=== PATIENT | male | born 1935 | race Caucasian/White ===

== ENCOUNTER 2016-07-19 10:27 | Observation (INO) ==
[2016-07-19 11:02] LABS: Basophils % 0.5 %; Eosinophils # 0.2 K/mcL (0.0-0.6); Eosinophils % 4.8 %; Immature Granulocytes % 0.2 % (0-4); Lymphocytes # 1.5 K/mcL (0.6-4.6); Lymphocytes % 35.7 %; Mean Corpuscular HGB Conc 34.1 g/dL (31.6-35.5); Mean Corpuscular Hemoglobin 29.7 pg (28.0-33.3); Mean Platelet Volume 10.8 fL (9.4-12.4); Monocytes # 0.4 K/mcL (0.0-1.3); Monocytes % 8.7 %; Neutrophils # 2.1 K/mcL (1.6-8.9); Platelet Count 162 K/mcL (140-400); Red Blood Count 4.71 M/mcL (4.19-5.50); Red Cell Distribution Width 13.8 % (11.5-14.5); Segmented Neutrophils % 50.1 %
--- NOTE | 2016-07-19 11:04 | Emergency Department Note ---
Disposition Clinical Impression: Altered mental status Qualifiers: Altered mental status type: delirium Qualified Code(s): R41.0 - Disorientation , unspecified Disposition: Admitted As Inpatient Condition: Fair Referrals: Patrick Khan DO [Primary Care Provider] - Forms: ED Satisfaction Letter Time of Disposition: 14:30 Neuro HPI - General Stated Complaint: neuro symptoms x 2 weeks Time Seen by Provider: 07/19/16 10:45 Source: family Limitations: altered mental status Nursing Notes Reviewed: Yes Vital Signs Reviewed: Yes - History of Present Illness HPI Narrative: Patient is a 81-year-old male who presents to [facility] ED with a 2 week history of neurologic symptoms. Patient's family states that he has been confused and having hallucinations that bugs are crawling all over him. Patient has had lower extremity weakness and has fallen twice today. They also noted a right-sided facial droop on him earlier today. Past medical history significant for hypertension and hyperlipidemia. Symptom Onset Unknown: Yes Location: right face History of same: No Severity: moderate Quality: weakness Symptoms Improving: No Improves with: none Worsens with: none Context: gradual onset On Anticoagulants: No Associated symptoms: Reports: denies other symptoms Treatments Prior to Arrival: none - Related Data Home Medications: Home Medications Medication Instructions Recorded Confirmed Aspirin Enteric Coated [Aspirin EC] 81 mg PO DAILY 12/09/15 12/09/15 BuPROPion SR (12 HR) [Wellbutrin 150 mg PO TID 12/09/15 12/09/15 SR] Doxazosin [Cardura] 8 mg PO DAILY 12/09/15 12/09/15 Gemfibrozil [Lopid] 600 mg PO BID 12/09/15 12/09/15 Multivitamin [One Daily Essential] 1 each PO DAILY 12/09/15 12/09/15 Previous Rx's Medication Instructions Recorded Gabapentin [Neurontin] 300 mg PO TID #45 capsule 09/07/15 Oxycodone HCl/Acetaminophen 1 tab PO Q6H PRN #39 tab 12/09/15 [Percocet 10-325 mg Tablet] Allergies/Adverse Reactions: Allergies Allergy/AdvReac Type Severity Reaction Status Date / Time No Known Allergies Allergy Verified 12/09/15 07:18 All systems ED: reviewed and negative except as stated. Past Medical History - Past Medical History Attestation: Yes The following information was validated with the patient. Source: patient Medical history: Reports: hypertension, other Psychiatric history: Reports: no psych history - Social History Smoking Status: Unknown if ever smoked Smokeless Tobacco Status: No Alcohol use: Reports: none Drug use: Reports: none Physical Exam - General Limitations: altered mental status General appearance: alert - Head Head exam: atraumatic, normocephalic, normal inspection - Eye Eye exam: Present: PERRL, EOMI - ENT ENT exam: normal exam, normal oropharynx, mucous membranes moist - Neck Neck exam: Present: normal inspection, full ROM, trachea midline - Chest Chest inspection: Present: normal inspection, symmetric chest wall rise - Respiratory Respiratory exam: Present: normal lung sounds bilaterally - Cardiovascular Cardiovascular exam: Present: regular rate, normal rhythm, normal heart sounds - Abdominal Exam Abdominal exam: Present: soft, Non-Tender. Absent: tenderness, distention, guarding, rebound, rigidity - Extremities Exam Extremities exam: Present: normal inspection, full ROM. Absent: tenderness, pedal edema - Back Exam Back exam: Present: normal inspection, full ROM. Absent: tenderness - Expanded Neurological Exam Patient oriented to: Present: person Speech: Present: fluid speech Cranial nerves: EOM function (II, III, IV, ): Normal, facial sensation (V): Normal, facial palsy (VII): Normal, tongue deviation (XII): Normal Cerebellar function: finger to nose: Normal Motor strength - LUE: 5/5 Motor strength - RUE: 5/5 Motor strength - LLE: 5/5 Motor strength - RLE: 5/5 Sensory exam upper extremity: light touch: Normal Sensory exam lower extremity: light touch: Normal Coma Scale Eye Opening: Spontaneous Coma Scale Motor Response: Obeys Commands Coma Scale Verbal Response: Confused Coma Scale Total: 14 - Skin Skin exam: Present: warm, dry, intact, normal color Course Course Narrative: Patient seen and examined. Patient has had some tactile hallucinations as well as talking out of his head. Some neurological symptoms over the last 2 weeks. Neurologic/altered mentation workup initiated. - Reevaluation(s) Reevaluation #1: Lab work shows mildly elevated creatinine of 1.55 previously 1.22. No other abnormalities. CT scan also unremarkable. Patient's only medications that were new were eyedrops after his cataract surgery. No new oral medications. We will admit for altered mental status and generalized weakness. I spoke with hospitalist Dr. Bolivar who has accepted patient for admission. Time: 14:30 Vital Signs Temperature 97.1 F L 07/19/16 10:35 Pulse Rate 84 07/19/16 10:35 Respiratory Rate 18 07/19/16 10:35 Blood Pressure 155/94 07/19/16 10:35 O2 Sat by Pulse Oximetry 100 07/19/16 10:35 Temperature 97.6 F 07/19/16 14:04 Pulse Rate 91 07/19/16 14:04 Respiratory Rate 16 07/19/16 14:04 Blood Pressure 163/87 07/19/16 14:04 O2 Sat by Pulse Oximetry 96 07/19/16 14:04 Oxygen Delivery Oxygen Delivery Room Air Neuro Symptoms/Deficit - MDM Narrative Medical decision making narrative: I examined this patient and my medical decision-making was reviewed with the FINANCIAL LEGAL ASSISTANT/PA/Advanced Practice Nurse/Resident Physician. I agree with the documented findings, disposition and treatment plan as described except to the extent set forth below. Patient presents today and was seen by Dr. Magallon and myself, I agree with the her evaluation and management plan and supervised the care of the patient and stay. Patient was in today with generalized weakness has been going on for 2 weeks according to family. They think her last 24-48 hours she has been having some hallucinations and has had altered mental status. History of prostate problems I have asked if he has had recent UTIs they have declined this. He does not have any focal deficits here, he does have some confusion he is alert to person place but not to time. He is cooperative here. We will get a head CT and a workup for altered mental status. I do not think this is an acute stroke and he does not meet acute stroke criteria. Head CT 07/19/16 10:56 IMPRESSION: No acute intracranial abnormality. D/ / Dg Veliz MD / Dg Veliz MD Interpreting Provider: Dg Veliz MD Patient's labs are fairly unremarkable except for his creatinine being elevated his urinalysis is fairly unremarkable CT shows no acute stroke. I will bring in for acute mental status change workup. Family is in agreement with this plan. They may need some social service involvement also. Alessandro hospitalist. - Medical Records Medical records reviewed: Yes I reviewed the patient's medical records. - Lab Data Lab results reviewed: Yes I reviewed the patient's lab results. Result diagrams: 07/19/16 10:44 07/19/16 10:44 Lab Results 07/19/16 07/19/16 07/19/16 Range/Units 10:37 10:44 10:44 WBC 4.2 L (4.3-11.1) K/mcL RBC 4.71 (4.19-5.50) M/mcL Hgb 14.0 (12.9-16.9) g/dL Hct 41.0 (37.5-50.1) % MCV 87.0 (83.0-100.0) fL MCH 29.7 (28.0-33.3) pg MCHC 34.1 (31.6-35.5) g/dL RDW 13.8 (11.5-14.5) % Plt Count 162 (140-400) K/mcL MPV 10.8 (9.4-12.4) fL Immature Gran % 0.2 (0-4) % Seg Neutrophils % 50.1 % Lymphocytes % 35.7 % Monocytes % 8.7 % Eosinophils % 4.8 % Basophils % 0.5 % Neutrophils # 2.1 (1.6-8.9) K/mcL Lymphocytes # 1.5 (0.6-4.6) K/mcL Monocytes # 0.4 (0.0-1.3) K/mcL Eosinophils # 0.2 (0.0-0.6) K/mcL Basophils # 0.0 (0.0-0.2) K/mcL PT 12.4 H (9.4-12.1) Seconds INR 1.1 APTT 35.2 (26.0-36.0) Seconds Sodium (136-145) mEq/L Potassium (3.5-4.5) mEq/L Chloride (98-109) mEq/L Carbon Dioxide (19-29) mEq/L BUN (8-26) mg/dL Creatinine (0.72-1.25) mg/dL Est GFR ( Amer) (> 60) Est GFR (Non-Af Amer) (> 60) BUN/Creatinine Ratio (6-26) Glucose (70-99) mg/dL POC Glucose 115 H (58-89) Calculated Osmolality (280-300) Calcium (8.6-10.8) mg/dL Total Bilirubin (0.2-1.2) mg/dL Direct Bilirubin (0.0-0.5) mg/dL Indirect Bilirubin (0.0-1.2) mg/dL AST (5-34) Units/L ALT (0-55) Units/L Alkaline Phosphatase (38-126) Units/L Ammonia (18-72) mcmol/L Troponin I (0-0.03) ng/mL Serum Total Protein (6.0-8.3) g/dL Albumin (3.5-5.0) g/dL Globulin (2.4-3.5) g/dL Albumin/Globulin Ratio (1.1-2.2) TSH (0.350-4.840) mcIU/mL Urine Color (Yellow) Urine Clarity (Clear) Urine pH (5.0-8.0) pH Units Ur Specific [place] (1.010-1.025) Urine Protein (Neg-Trace) mg/dL Urine Glucose (UA) (Normal) mg/dL Urine Ketones (Negative) mg/dL Urine Blood (Negative) Urine Nitrite (Negative) Urine Bilirubin (Negative) Urine Urobilinogen (Normal) mg/dL Ur Leukocyte Esterase (Negative) Ur Culture Indicated? (NO) 07/19/16 07/19/16 07/19/16 Range/Units 10:44 10:44 11:33 WBC (4.3-11.1) K/mcL RBC (4.19-5.50) M/mcL Hgb (12.9-16.9) g/dL Hct (37.5-50.1) % MCV (83.0-100.0) fL MCH (28.0-33.3) pg MCHC (31.6-35.5) g/dL RDW (11.5-14.5) % Plt Count (140-400) K/mcL MPV (9.4-12.4) fL Immature Gran % (0-4) % Seg Neutrophils % % Lymphocytes % % Monocytes % % Eosinophils % % Basophils % % Neutrophils # (1.6-8.9) K/mcL Lymphocytes # (0.6-4.6) K/mcL Monocytes # (0.0-1.3) K/mcL Eosinophils # (0.0-0.6) K/mcL Basophils # (0.0-0.2) K/mcL PT (9.4-12.1) Seconds INR APTT (26.0-36.0) Seconds Sodium 137 (136-145) mEq/L Potassium 3.7 (3.5-4.5) mEq/L Chloride 113 H (98-109) mEq/L Carbon Dioxide 17 L (19-29) mEq/L BUN 28 H (8-26) mg/dL Creatinine 1.55 H (0.72-1.25) mg/dL Est GFR ( Amer) 53 L (> 60) Est GFR (Non-Af Amer) 43 L (> 60) BUN/Creatinine Ratio 18 (6-26) Glucose 118 H (70-99) mg/dL POC Glucose (58-89) Calculated Osmolality 291 (280-300) Calcium 9.2 (8.6-10.8) mg/dL Total Bilirubin 0.8 (0.2-1.2) mg/dL Direct Bilirubin 0.3 (0.0-0.5) mg/dL Indirect Bilirubin 0.5 (0.0-1.2) mg/dL AST 14 (5-34) Units/L ALT 10 (0-55) Units/L Alkaline Phosphatase 81 (38-126) Units/L Ammonia 21 (18-72) mcmol/L Troponin I 0.01 (0-0.03) ng/mL Serum Total Protein 8.0 (6.0-8.3) g/dL Albumin 4.0 (3.5-5.0) g/dL Globulin 4.0 H (2.4-3.5) g/dL Albumin/Globulin Ratio 1.0 L (1.1-2.2) TSH 2.633 (0.350-4.840) mcIU/mL Urine Color (Yellow) Urine Clarity (Clear) Urine pH (5.0-8.0) pH Units Ur Specific [place] (1.010-1.025) Urine Protein (Neg-Trace) mg/dL Urine Glucose (UA) (Normal) mg/dL Urine Ketones (Negative) mg/dL Urine Blood (Negative) Urine Nitrite (Negative) Urine Bilirubin (Negative) Urine Urobilinogen (Normal) mg/dL Ur Leukocyte Esterase (Negative) Ur Culture Indicated? (NO) 07/19/16 Range/Units 11:45 WBC (4.3-11.1) K/mcL RBC (4.19-5.50) M/mcL Hgb (12.9-16.9) g/dL Hct (37.5-50.1) % MCV (83.0-100.0) fL MCH (28.0-33.3) pg MCHC (31.6-35.5) g/dL RDW (11.5-14.5) % Plt Count (140-400) K/mcL MPV (9.4-12.4) fL Immature Gran % (0-4) % Seg Neutrophils % % Lymphocytes % % Monocytes % % Eosinophils % % Basophils % % Neutrophils # (1.6-8.9) K/mcL Lymphocytes # (0.6-4.6) K/mcL Monocytes # (0.0-1.3) K/mcL Eosinophils # (0.0-0.6) K/mcL Basophils # (0.0-0.2) K/mcL PT (9.4-12.1) Seconds INR APTT (26.0-36.0) Seconds Sodium (136-145) mEq/L Potassium (3.5-4.5) mEq/L Chloride (98-109) mEq/L Carbon Dioxide (19-29) mEq/L BUN (8-26) mg/dL Creatinine (0.72-1.25) mg/dL Est GFR ( Amer) (> 60) Est GFR (Non-Af Amer) (> 60) BUN/Creatinine Ratio (6-26) Glucose (70-99) mg/dL POC Glucose (58-89) Calculated Osmolality (280-300) Calcium (8.6-10.8) mg/dL Total Bilirubin (0.2-1.2) mg/dL Direct Bilirubin (0.0-0.5) mg/dL Indirect Bilirubin (0.0-1.2) mg/dL AST (5-34) Units/L ALT (0-55) Units/L Alkaline Phosphatase (38-126) Units/L Ammonia (18-72) mcmol/L Troponin I (0-0.03) ng/mL Serum Total Protein (6.0-8.3) g/dL Albumin (3.5-5.0) g/dL Globulin (2.4-3.5) g/dL Albumin/Globulin Ratio (1.1-2.2) TSH (0.350-4.840) mcIU/mL Urine Color Yellow (Yellow) Urine Clarity Clear (Clear) Urine pH 7.0 (5.0-8.0) pH Units Ur Specific [place] 1.016 (1.010-1.025) Urine Protein Negative (Neg-Trace) mg/dL Urine Glucose (UA) Normal (Normal) mg/dL Urine Ketones Negative (Negative) mg/dL Urine Blood Negative (Negative) Urine Nitrite Negative (Negative) Urine Bilirubin Negative (Negative) Urine Urobilinogen Normal (Normal) mg/dL Ur Leukocyte Esterase Negative (Negative) Ur Culture Indicated? NO (NO) - Radiology Data Radiology results reviewed: Yes I reviewed the patient's radiology results. Head CT 07/19/16 10:56 IMPRESSION: No acute intracranial abnormality. D/ / Dg Veliz MD / Dg Veliz MD Interpreting Provider: Dg Veliz MD - EKG Data EKG attestation: Yes I reviewed and interpreted this EKG. EKG results narrative: EKG done at 1041 shows normal sinus rhythm with a rate of [address] elevation. There is some ST depression in V5 and V6. Right bundle branch block present. Left axis deviation. Occasional PVCs. EKG appears unchanged from prior EKG done 12/04/2015. NIH Stroke Scale - Level of Consciousness LOC: Alert - LOC Questions LOC Questions: Answers both correctly - LOC Commands LOC Commands: Performs both correctly - Best Gaze Best Gaze: Normal - Visual Visual: Partial hemianopia (chronic) - Facial Palsy Facial Palsy: Normal - Motor Arms Motor Arm-Left: No drift for 10 seconds Motor Arm-Right: No drift for 10 seconds - Motor Legs Motor Leg-Left: No drift for 5 seconds Motor Leg-Right: No drift for 5 seconds - Limb Ataxia Limb Ataxia: Present in TWO limbs - Sensory Sensory: Normal - Best Language Best Language: No aphasia - Dysarthria Dysarthria: Normal - Extinction and Inattention Extinction and Inattention: Inattention or extinction in ONE modality - NIHSS Total Score NIHSS Total Score: 4 TPA Checklist - LKW: 3-4.5 hrs Add. Contraindications Patient/family understanding: The patient/family members have been counseled and understood the risk, benefit , and alternatives of treatment.
[2016-07-19 11:10] LABS: Calcium 9.2 mg/dL (8.6-10.8); INR 1.1; Potassium 3.7 mEq/L (3.5-4.5); Prothrombin Time 12.4 Seconds (9.4-12.1)
[2016-07-19 11:13] LABS: Activated Partial Thrombo Time 35.2 Seconds (26.0-36.0)
[2016-07-19 11:26] LABS: Bilirubin,Direct 0.3 mg/dL (0.0-0.5); Bilirubin,Indirect 0.5 mg/dL (0.0-1.2); Bilirubin,Total 0.8 mg/dL (0.2-1.2)
[2016-07-19 11:47] LABS: Thyroid Stimulating Hormone 2.633 mcIU/mL (0.350-4.840)
[2016-07-19 11:56] LABS: Bilirubin,Urine Negative (Negative); Blood,Urine Negative (Negative); Clarity,Urine Clear (Clear); Color,Urine Yellow (Yellow); Glucose,Urine (UA) Normal (Normal); Ketones,Urine Negative (Negative); Leukocyte Esterase,Urine Negative (Negative); Nitrite,Urine Negative (Negative); Protein,Urine Negative (Neg-Trace); Specific Gravity,Urine 1.016 (1.010-1.025); Urobilinogen,Urine Normal (Normal)
[2016-07-19] MEDS ORDERED: Naloxone 0.4 MG/ML INJ IVP PRN (15:13)
[2016-07-19] MEDS ORDERED: Acetaminophen 325 MG TABLET PO PRN (15:13)
--- NOTE | 2016-07-19 15:56 | Internal Med History&Physical ---
<Rosi Jones - Last Filed: 07/19/16 16:41> Date of Encounter: 07/19/16 Time of Encounter: 15:00 Assessment and Plan (1) Encephalopathy due to metabolic factor or toxin Current visit: Yes Status: Acute 1 she has been expressing increasing confusion as well as hallucinations. CT of head was negative lab work is unremarkable however does reveal elevated creatinine as well as bicarbonate 17. This does not appear to be infectious process. I suspect this is related to dehydration as well as newly prescribed Acetazolamide. He is also taking Wellbutrin which could be a compounding factor. We will hold diuretic as well as Wellbutrin. 2 we will give IV fluids 3 we will obtain B12 as well as workup for neurosyphilis 4. Fall precautions 5. Monitor Electrolytes (2) GEOVANNI (acute kidney injury) Current visit: Yes Status: Acute 1 patient's creatinine is 1.55 which is elevated from previous at 1.2 to Speck this is related to use of diuretics. He does have a bicarbonate of 17 and anion gap is 7 possibly RTA/ or CK-MB involvement. We will hold diuretics for now 2 give IV fluids 3 monitor electrolytes and replace as needed 4 avoid nephrotoxins 5 we will maintain a MAP greater than 60 6 monitor intake and output (3) HTN (hypertension) Current visit: Yes Status: Chronic 1 she has a history of hypertension presently controlled we will continue with home medications goes to maintain systolic less than 140 2 low sodium diet Qualifiers: Hypertension type: essential hypertension Qualified Code(s): I10 - Essential (primary) hypertension (4) DVT prophylaxis Current visit: Yes Status: Acute 1 [facility] Internal Medicine - H&P: HPI Chief complaint: confusion Admitted From: Emergency Dept Plans for Post Hospital Care: Home History of present illness: Mr. Llanes is a 81 year old male past medical history of hypertension BPH depression AAA. Information obtained from medical records as well as due to patient's mental status. According to the patient's the patient has been experiencing increasing confusion over the past 2 weeks. First started out with just slurred speech and then progressed to hallucinations and bizarre behavior. The patient underwent a cataract surgery in April and she states ever since he had the surgery he has been acting strangely. He has had frequent falls and hallucinations about bugs and maggots. According to the last night the patient thought that there was someone in the house and he retrieved his gun. She and her family became concerned due to increased confusion and frequent hallucinations . Prior to this the patient was in his usual state of health, highly functioning driving a car. He was brought to the ER for evaluation. Review the ER records CT of patient's head was negative troponin was 0 glucose was 118 no leukocytosis urinalysis was negative for UTI, LFTs were normal ammonia 21 tox screen was obtained awaiting results. He is admitted for further workup and evaluation. Presently patient denies any chest pain or shortness of breath. He is alert oriented 3 has difficulty following commands cranial nerves II through XII are intact. During conversation patient displays word searching, he has difficulty identifying objects. He is experiencing hallucinations swatted at the air stating that they are Bees in the room. The states that he has not had any episodes of nausea vomiting diarrhea no fevers or chills he has had no sick exposures. He has been eating and drinking without difficulty no disturbance in sleep pattern no recent head trauma. The states he did start a new medication approximately 2 weeks ago Acetazolamide, which was prescribed by his eye doctor for increased ocular pressure. I reviewed this case with Dr Bolivar He is presently hemodynamically stable Past Med Surg Social Fam HX - Past Medical History Medical history: hypertension, other Psychiatric history: no psych history - Past Surgical History Surgical History: appendectomy, cataract, herniorrhaphy - Social History Smoking Status: Unknown if ever smoked Smokeless Tobacco Status: No Alcohol use: none Drug use: none - Family History Mother Hx Family Endocrine Disorder: Yes Internal Medicine - H&P: Meds Aspirin Enteric Coated [Aspirin EC] 81 mg PO DAILY 12/09/15 [History] BuPROPion SR (12 HR) [Wellbutrin SR] 150 mg PO TID 12/09/15 [History] Doxazosin [Cardura] 8 mg PO HS 12/09/15 [History] Gemfibrozil [Lopid] 600 mg PO BID 12/09/15 [History] Multivitamin [One Daily Essential] 1 each PO DAILY 12/09/15 [History] AcetaZOLAMIDE [Acetazolamide] 500 mg PO BID 07/19/16 [History] Brimonidine Tartrate/Timolol [Combigan 0.2%-0.5% Eye Drops] 1 drop LEFT EYE TID 07/19/16 [History] Gabapentin [Neurontin] 300 mg PO BID 07/19/16 [History] Travoprost [Travatan Z] 1 drop BOTH EYES DAILY 07/19/16 [History] Allergies No Known Allergies Allergy (Verified 12/09/15 07:18) All Systems PM: A 10-system review of systems was performed and is negative for pertinent findings except as documented above in the HPI. - Constitutional Constitutional: no chills, no fever(s), no night sweats - EENT Eyes: loss of peripheral vision, loss of vision - Cardiovascular Cardiovascular ROS IM: no chest pain, no diaphoresis, no dyspnea, no lightheadedness, no palpitations, no syncope - Respiratory Respiratory: no cough, no dyspnea, no wheezing, no excessive phlegm production - Gastrointestinal Gastrointestinal: no abdominal pain, no diarrhea, no hematemesis, no hematochezia, no melena, no nausea, no vomiting - Musculoskeletal Musculoskeletal ROS IM: no numbness, no tingling - Neurological Neurological ROS: abnormal speech, behavioral changes, confusion, frequent falls , weakness - Psychiatric Psychiatric: behavioral changes, visual hallucinations - Constitutional Vitals: Temp Pulse Resp BP Pulse Ox 97.6 F 91 16 163/87 96 07/19/16 14:04 07/19/16 14:04 07/19/16 14:04 07/19/16 14:04 07/19/16 14:04 General appearance: Present: cooperative, A&O X 3, pleasant - Head Head exam: Present: atraumatic, normocephalic - Eye Eye exam: Present: conjuntiva pink, sclera anicteric - Expanded Eye Exam Pupils: mydriasis: Left, reactive: Right, regular, round: Right (L irregular) - Neck Neck exam general surgery: Present: supple, trachea midline. Absent: lymphadenopathy - Respiratory Respiratory exam: Present: CTAB. Absent: accessory muscle use, rales, rhonchi, wheezes - Cardiovascular Cardiovascular exam: Present: RRR, +S1, +S2. Absent: diastolic murmur, gallop, rubs, systolic murmur - GI/Abdominal GI/Abdominal exam: Present: normal bowel sounds, soft, no peritoneal signs. Absent: distended, tenderness - Extremities Exam Extremities exam: Present: warm, radial pulses palpable and symetrical. Absent : calf tenderness, cyanotic, pedal edema - Neurological Exam Neurological exam: Present: altered, CN II-XII intact, oriented X3, no focal deficits, strengths equal and symetr throughout. Absent: pronater drift, facial droop, speech deficit - Skin Skin exam: Present: dry, intact Internal Med - H&P Results - Labs CBC & Chem 7: 07/19/16 10:44 07/19/16 10:44 - Diagnostic Studies CT scan - head Additional comments: Head CT 07/19/16 10:56 IMPRESSION: No acute intracranial abnormality. D/ / Dg Veliz MD / Dg Veliz MD Interpreting Provider: Dg Veliz MD <Jose J Bolivar - Last Filed: 07/20/16 17:58> Internal Medicine - H&P: HPI History of present illness: Mr. Llanes is a 81 year old male All Systems PM: A 10-system review of systems was performed and is negative for pertinent findings except as documented above in the HPI. - Constitutional Vitals: Temp Pulse Resp BP Pulse Ox 98.2 F 74 16 164/83 98 07/20/16 15:27 07/20/16 15:27 07/20/16 15:27 07/20/16 15:27 07/20/16 15:27 Internal Med - H&P Results - Labs CBC & Chem 7: 07/20/16 04:00 07/20/16 04:00 Labs: Short CBC 07/20/16 Range/Units 04:00 WBC 5.9 (4.3-11.1) K/mcL Hgb 12.4 L D (12.9-16.9) g/dL Hct 37.4 L (37.5-50.1) % Plt Count 168 (140-400) K/mcL Neutrophils # 3.2 (1.6-8.9) K/mcL BMP 07/20/16 04:00 Sodium 139 Potassium 3.6 Chloride 117 H Carbon Dioxide 13 L BUN 27 H Creatinine 1.30 H Glucose 117 H Calcium 8.2 L - Attending Attestation I examined this patient and my medical decision-making was reviewed with the Advanced Practice Nurse. I agree with the documented findings, disposition and treatment plan as described except to the extent set forth below. Patient was brought to the hospital for evaluation of delirium and hallucinations. On exam he is in no acute distress awake alert oriented 2, heart is regular S1-S2, lungs clear. Plan: We will place the patient in observation. Stop any possible offending medication. Start workup for secondary dementia including RPR and vitamin B-12 level. PTOT. Social work evaluation.
[2016-07-19] MEDS: 0.9 % Sodium Chloride 1,000 ML IVC SCH (16:21)
[2016-07-19 18:20] LABS: Amphetamine Screen,Urine Negative ng/mL (Cutoff=1000); Barbiturate Screen,Urine Negative ng/mL (Cutoff=200); Benzodiazepines Screen,Urine Negative ng/mL (Cutoff=200); Cannabinoid Screen,Urine Negative ng/mL (Cutoff = 50); Cocaine Screen,Urine Negative ng/mL (Cutoff= 300); Opiate Screen,Urine Negative ng/mL (Cutoff=300); Phencyclidine Screen,Urine Negative ng/mL (Cutoff=25)
[2016-07-20] MEDS ORDERED: Melatonin 3 MG TABLET PO ONE (01:50)
[2016-07-20] MEDS: 0.9 % Sodium Chloride 1,000 ML IVC SCH ×3 (01:59→13:14)
[2016-07-20 04:19] LABS: Basophils % 0.3 %; Eosinophils # 0.2 K/mcL (0.0-0.6); Hematocrit 37.4 % (37.5-50.1); Immature Granulocytes % 0.7 % (0-4); Lymphocytes # 1.8 K/mcL (0.6-4.6); Lymphocytes % 30.1 %; Mean Corpuscular HGB Conc 33.2 g/dL (31.6-35.5); Mean Corpuscular Hemoglobin 28.6 pg (28.0-33.3); Mean Corpuscular Volume 86.2 fL (83.0-100.0); Mean Platelet Volume 10.8 fL (9.4-12.4); Monocytes # 0.7 K/mcL (0.0-1.3); Monocytes % 10.9 %; Neutrophils # 3.2 K/mcL (1.6-8.9); Platelet Count 168 K/mcL (140-400); Red Blood Count 4.34 M/mcL (4.19-5.50); Red Cell Distribution Width 13.7 % (11.5-14.5)
[2016-07-20 04:27] LABS: Hemoglobin 12.4 g/dL (12.9-16.9)
[2016-07-20 04:40] LABS: BUN/Creatinine Ratio 21 (6-26); Blood Urea Nitrogen 27 mg/dL (8-26); Calcium 8.2 mg/dL (8.6-10.8); Carbon Dioxide 13 mEq/L (19-29); Chloride 117 mEq/L (98-109); Glucose 117 mg/dL (70-99); Osmolality,Calculated 294 (280-300); Potassium 3.6 mEq/L (3.5-4.5); Sodium 139 mEq/L (136-145); eGFR For African Americans > 60 (> 60); eGFR For Non-African Americans 53 (> 60)
[2016-07-20] MEDS: *HR* Enoxaparin 40 MG/0.4 ML SYRINGE SQ SCH (06:27)
[2016-07-20] MEDS: Multivit/Ca/Min/Fe/FA 1 TAB TABLET PO SCH (08:36)
[2016-07-20] MEDS: Latanoprost 2.5 ML BOTTLE BOTH EYES SCH (08:36)
[2016-07-20] MEDS: Aspirin Enteric Coated 81 MG Tablet PO SCH (08:36)
--- NOTE | 2016-07-20 10:36 | Internal Med Progress Note ---
Date of Encounter: 07/20/16 Time of Encounter: 10:00 - Assessment and plan (1) Encephalopathy due to metabolic factor or toxin Current Visit: Yes Status: Acute Assessment and plan: Pt has 2 week history of visual hallucinations at home, however pt has been confused and "not himself" since eye surgery in Apr. Immediately prior to hernia repair in December, per granddaughter, pt stated that he had a "weevil" in his abdomen that was biting him, referring to the pain in the abd due to the hernia. Today pt reports that there are purple and white bugs in the bed with him and he tries to get out of the bed to get away from them. Granddaughter states that pt was grabbing the siderail in his bed and told his that he was trying to break a little boy's arm. Continue to hold Acetazolamide and Wellbutrin, as well as diuretic Fall precautions Labs pending Monitor daily labs IVF 0.9NS at 60ml/hr (2) GEOVANNI (acute kidney injury) Current Visit: Yes Status: Acute Assessment and plan: Creatinine down to 1.30 today. Will continue to hold diuretics and gently hydrate at 60ml/hour. Avoid neprotoxins Avoid NSAIDS Monitor labs Continue gentle IV hydration Monitor I and O (3) Altered mental status Current Visit: Yes Status: Acute Assessment and plan: Pt answers questions appropriately, is alert and oriented x 3 and is aware who the president is, however, he has visual hallucinations which is new within the last 2 weeks. Pt started several new eye drops over the last few months for glaucoma and recently started Acetazolamide, which has been stopped, as well as Wellbutrin, which potentially is contributing to his confusion. Pt sees people, as well as insects in his bed, and granddaughter states that his hallucinations and aggression increase at night. Fall precautions Close to nurses station Stop Acetalzolamide and Wellbutrin, as well as diuretics Monitor labs. Qualifiers: Altered mental status type: unspecified Qualified Code(s): R41.82 - Altered mental status, unspecified (4) DVT prophylaxis Current Visit: Yes Status: Acute Assessment and plan: Lovenox (5) HTN (hypertension) Current Visit: Yes Status: Chronic Assessment and plan: Well controlled during visit, primarily 130s/80s. Will continue to monitor and continue medications. Monitor vital signs Qualifiers: Hypertension type: essential hypertension Qualified Code(s): I10 - Essential (primary) hypertension - Time Spent With Patient less than 15 minutes - Subjective Interval history: Pt states that he feels fine today. Denies pain. States that he would like to get out of the bed and away from the bugs. Family at states that pt had a similar episode in December prior to hernia repair when he said that there was a weevil inside of him biting him. - Constitutional Vitals: Temp Pulse Resp BP Pulse Ox 97.3 F L 92 16 135/74 96 07/20/16 07:44 07/20/16 07:44 07/20/16 07:44 07/20/16 07:44 07/20/16 07:44 General appearance: Present: cooperative, A&O X 3, pleasant, answers questions appropriately - Head Head exam: Present: normal inspection - Eye Eye exam: Present: normal appearance. Absent: conjunctival injection, nystagmus - ENT ENT exam: Present: mucous membranes moist, normal exam - Neck Neck exam general surgery: Present: full ROM, normal inspection. Absent: lymphadenopathy, tenderness, nuchal rigidity, thyromegaly - Respiratory Respiratory exam: Present: CTAB. Absent: chest wall tenderness, decreased breath sounds, rales, respiratory distress, rhonchi, stridor, wheezes - Cardiovascular Cardiovascular exam: Present: RRR, +S1, +S2. Absent: diastolic murmur, systolic murmur - GI/Abdominal GI/Abdominal exam: Present: normal bowel sounds, soft. Absent: distended, pulsatile mass, tenderness - Extremities Exam Extremities exam: Present: full ROM, normal capillary refill, normal inspection , warm, radial pulses palpable and symetrical. Absent: calf tenderness, joint swelling, pedal edema, tenderness Additional comments: +2 pedal pulses willian. - Neurological Exam Neurological exam: Present: alert, oriented X3, strengths equal and symetr throughout. Absent: no focal deficits, facial droop, speech deficit - Psychiatric Psychiatric exam: Present: flat affect Additional comments: Pt is seeing purple and white bugs in his bed. Last pm pt was grabbing the bedrail and shaking it and saying there was a little boy beside the bed and he was trying to break his arm. Family at states that behaviour is worse at night. Internal Medicine: Result - Labs CBC & Chem 7: 07/20/16 04:00 07/20/16 04:00 Labs: Short CBC 07/20/16 Range/Units 04:00 WBC 5.9 (4.3-11.1) K/mcL Hgb 12.4 L D (12.9-16.9) g/dL Hct 37.4 L (37.5-50.1) % Plt Count 168 (140-400) K/mcL Neutrophils # 3.2 (1.6-8.9) K/mcL BMP 07/20/16 04:00 Sodium 139 Potassium 3.6 Chloride 117 H Carbon Dioxide 13 L BUN 27 H Creatinine 1.30 H Glucose 117 H Calcium 8.2 L - ABG Interpretation ABG results: PT/INR, D-dimer PT 12.4 Seconds (9.4-12.1) H 07/19/16 10:44 Consult Discharge Plan - Plan Referrals: Patrick Khan DO [Primary Care Provider] -
--- NOTE | 2016-07-20 15:47 | Electrocardiograph Report ---
[address] [address] Test Date: 2016-07-19 Pat Name: Rashaad Llanes Department: 104 Room: 3B11 Gender: M Welder Tack: : [id number] Requested By: Rosi Jones Order Number: [id number] Reading MD: Laura Maguire Measurements Intervals [place] Rate: 89 P: 1 SC: 160 QRS: -27 QRSD: 187 T: -2 QT: 408 QTc: 454 Interpretive Statements SINUS RHYTHM WITH OCCASIONAL SUPRAVENTRICULAR PREMATURE COMPLEXES BORDERLINE LEFT AXIS DEVIATION RIGHT BUNDLE BRANCH BLOCK Electronically Signed On 07-20-2016 15:45:52 EDT by Laura Maguire
[2016-07-21 05:18] LABS: Basophils % 0.5 %; Eosinophils # 0.1 K/mcL (0.0-0.6); Hematocrit 37.7 % (37.5-50.1); Hemoglobin 12.8 g/dL (12.9-16.9); Immature Granulocytes % 0.3 % (0-4); Lymphocytes # 1.2 K/mcL (0.6-4.6); Lymphocytes % 20.5 %; Mean Corpuscular Hemoglobin 29.2 pg (28.0-33.3); Mean Corpuscular Volume 86.1 fL (83.0-100.0); Mean Platelet Volume 11.3 fL (9.4-12.4); Monocytes # 0.6 K/mcL (0.0-1.3); Monocytes % 9.8 %; Platelet Count 171 K/mcL (140-400); Red Blood Count 4.38 M/mcL (4.19-5.50); Red Cell Distribution Width 13.7 % (11.5-14.5); Segmented Neutrophils % 67.9 %
[2016-07-21 05:21] LABS: BUN/Creatinine Ratio 19 (6-26); Blood Urea Nitrogen 21 mg/dL (8-26); Calcium 8.2 mg/dL (8.6-10.8); Carbon Dioxide 11 mEq/L (19-29); Chloride 117 mEq/L (98-109); Glucose 123 mg/dL (70-99); Osmolality,Calculated 290 (280-300); Potassium 3.3 mEq/L (3.5-4.5); Sodium 138 mEq/L (136-145); eGFR For African Americans > 60 (> 60); eGFR For Non-African Americans > 60 (> 60)
[2016-07-21] MEDS ORDERED: Melatonin 3 MG TABLET PO PRN (05:31)
[2016-07-21] MEDS ORDERED: Haloperidol Lactate 5 MG/ML VIAL IVP PRN (05:35)
[2016-07-21] MEDS: *HR* Enoxaparin 40 MG/0.4 ML SYRINGE SQ SCH (05:37)
[2016-07-21] MEDS: Aspirin Enteric Coated 81 MG Tablet PO SCH (09:23)
[2016-07-21] MEDS: Multivit/Ca/Min/Fe/FA 1 TAB TABLET PO SCH (09:23)
[2016-07-21] MEDS: Latanoprost 2.5 ML BOTTLE BOTH EYES SCH (09:24)
--- NOTE | 2016-07-21 09:34 | Internal Med Progress Note ---
Date of Encounter: 07/21/16 Time of Encounter: 09:15 - Assessment and plan (1) Encephalopathy due to metabolic factor or toxin Current Visit: Yes Status: Acute Assessment and plan: Pt is alert and oriented today, answers questions appropriately, however, sometimes is slow to respond. He is aware that he is in the hospital, knows the month and year and who the president is. Pt appears to be agitated today and is constantly moving arms and attempting to grab at things. Pt has been pink slipped this a.m. due to the fact that the family states that they can no longer care for him at home. SW consult is in and will attempt placement. Pt has a sitter for safety when the family is not in the room. Labs have returned to baseline, other than potassium, which will be supplemented. 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 Creatinine 1.121 and GFR > 60. Continue gentle hydration Avoid nephrotoxins Avoid NSAIDs Monitor labs and I and O (3) Altered mental status Current Visit: Yes Status: Acute Assessment and plan: Pt does not appear to be having visual hallucinations today, however, he was given benadryl for sleep, and though he seems slightly agitated, he is more restful than yesterday. Stop Acetazolamide and Wellbutrin Monitor labs Plan as above Qualifiers: Altered mental status type: unspecified Qualified Code(s): R41.82 - Altered mental status, unspecified (4) DVT prophylaxis Current Visit: Yes Status: Acute Assessment and plan: Lovenox (5) HTN (hypertension) Current Visit: Yes Status: Chronic Assessment and plan: Well controlled. Continue home medications Monitor VS Qualifiers: Hypertension type: essential hypertension Qualified Code(s): I10 - Essential (primary) hypertension - Time Spent With Patient less than 15 minutes - Subjective Interval history: Pt answers questions appropriately, is alert and oriented x 3. Today he reports that he is having abd pain, says that his "stomach feels funny." states that he has not had a BM since Tuesday. Family verbalized that they feel they cannot care for pt at home. - Constitutional Vitals: Temp Pulse Resp BP Pulse Ox 98.1 F 102 18 133/74 98 07/21/16 00:03 07/21/16 00:03 07/21/16 00:03 07/21/16 00:03 07/21/16 00:03 General appearance: Present: cooperative, A&O X 3, pleasant, answers questions appropriately - Head Head exam: Present: normal inspection - Eye Eye exam: Present: normal appearance, conjuntiva pink. Absent: nystagmus - ENT ENT exam: Present: mucous membranes dry, mucous membranes moist, normal external ear exam - Neck Neck exam general surgery: Present: normal inspection. Absent: lymphadenopathy , tenderness - Respiratory Respiratory exam: Present: CTAB. Absent: accessory muscle use, chest wall tenderness, decreased breath sounds, rales, respiratory distress, rhonchi, stridor, wheezes, tachypnea - Cardiovascular Cardiovascular exam: Present: RRR, +S1, +S2. Absent: diastolic murmur, systolic murmur - GI/Abdominal GI/Abdominal exam: Present: guarding, hypoactive bowel sounds, soft. Absent: pulsatile mass, splenomegaly, tenderness Additional comments: Pt states that he is having L abd pain, indicates entire side. No masses, does not appear to be tender. however, pt tightens muscles wherever abd is palpated and appears anxious to be touched. - Extremities Exam Extremities exam: Present: normal inspection, warm, radial pulses palpable and symetrical. Absent: calf tenderness, joint swelling, normal capillary refill, pedal edema, tenderness - Neurological Exam Neurological exam: Present: alert, oriented X3, no focal deficits. Absent: facial droop, speech deficit - Psychiatric Psychiatric exam: Present: agitated, flat affect Additional comments: Pt appears to be agitated today, does not want his abd to be touched. Internal Medicine: Result - Labs CBC & Chem 7: 07/21/16 04:13 07/21/16 04:13 Labs: Short CBC 07/21/16 Range/Units 04:13 WBC 5.9 (4.3-11.1) K/mcL Hgb 12.8 L (12.9-16.9) g/dL Hct 37.7 (37.5-50.1) % Plt Count 171 (140-400) K/mcL Neutrophils # 4.0 (1.6-8.9) K/mcL BMP 07/21/16 04:13 Sodium 138 Potassium 3.3 L Chloride 117 H Carbon Dioxide 11 L BUN 21 Creatinine 1.12 Glucose 123 H Calcium 8.2 L - ABG Interpretation ABG results: PT/INR, D-dimer PT 12.4 Seconds (9.4-12.1) H 07/19/16 10:44 Consult Discharge Plan - Plan Referrals: Patrick Khan DO [Primary Care Provider] -
[2016-07-21] MEDS ORDERED: Potassium Chloride Elixir 20 MEQ/15 ML UDC PO ONE (10:22)
[2016-07-22 05:57] LABS: Basophils % 0.5 %; Eosinophils # 0.1 K/mcL (0.0-0.6); Eosinophils % 1.7 %; Hematocrit 37.4 % (37.5-50.1); Hemoglobin 12.8 g/dL (12.9-16.9); Immature Granulocytes % 0.5 % (0-4); Lymphocytes # 1.4 K/mcL (0.6-4.6); Lymphocytes % 23.8 %; Mean Corpuscular HGB Conc 34.2 g/dL (31.6-35.5); Mean Corpuscular Hemoglobin 29.3 pg (28.0-33.3); Mean Corpuscular Volume 85.6 fL (83.0-100.0); Monocytes # 0.7 K/mcL (0.0-1.3); Monocytes % 11.3 %; Neutrophils # 3.8 K/mcL (1.6-8.9); Platelet Count 168 K/mcL (140-400); Red Blood Count 4.37 M/mcL (4.19-5.50); Red Cell Distribution Width 13.9 % (11.5-14.5); Segmented Neutrophils % 62.2 %
[2016-07-22 06:01] LABS: BUN/Creatinine Ratio 22 (6-26); Blood Urea Nitrogen 28 mg/dL (8-26); Calcium 8.4 mg/dL (8.6-10.8); Carbon Dioxide 13 mEq/L (19-29); Chloride 118 mEq/L (98-109); Glucose 124 mg/dL (70-99); Osmolality,Calculated 297 (280-300); Potassium 3.4 mEq/L (3.5-4.5); Sodium 140 mEq/L (136-145); eGFR For African Americans > 60 (> 60); eGFR For Non-African Americans 54 (> 60)
[2016-07-22] MEDS: *HR* Enoxaparin 40 MG/0.4 ML SYRINGE SQ SCH (06:01)
[2016-07-22 09:02] LABS: Magnesium 1.9 mg/dL (1.6-2.6)
--- NOTE | 2016-07-22 09:35 | Internal Med Progress Note ---
Date of Encounter: 07/22/16 Time of Encounter: 08:50 - Assessment and plan (1) Altered mental status Current Visit: Yes Status: Acute Assessment and plan: Again today, pt does not appear to be having visual halllucinations, however, he has very flat affect and is not interactive with staff or . He answers questions appropriately and is a/o x 3. states that he is better today, however, is not back to his baseline. 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 Maintain fall precautions Maintain sitter when family not present Monitor labs Placement pending Qualifiers: Altered mental status type: unspecified Qualified Code(s): R41.82 - Altered mental status, unspecified (2) GEOVANNI (acute kidney injury) Current Visit: Yes Status: Acute Assessment and plan: Today creatinine 1.29, slightly elevated. IVF had been stopped for some reason, will resume. 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 KCL 40meq po Monitor labs (5) HTN (hypertension) Current Visit: Yes Status: Chronic Assessment and plan: Pt has been normotensive. Continue home medications and monitor VS. Qualifiers: Hypertension type: essential hypertension Qualified Code(s): I10 - Essential (primary) hypertension (6) Hypocalcemia Current Visit: Yes Status: Acute Assessment and plan: 8.4 today Calcium carbonate 1,000mg tid Recheck labs. (7) DVT prophylaxis Current Visit: Yes Status: Acute Assessment and plan: Lovenox SQ Pt is up in room, sitting in chair, has walked around unit with assistance. - Subjective Interval history: Pt answers questions appropriately; he is aware of month, year, location, city, and who is president. He denies pain today. states that he seems better, but is nowhere back to baseline. - Constitutional Vitals: Temp Pulse Resp BP Pulse Ox 97.6 F 60 16 110/51 96 07/22/16 07:28 07/22/16 07:28 07/22/16 07:28 07/22/16 07:28 07/22/16 07:28 General appearance: Present: cooperative, A&O X 3, pleasant, no acute distress, answers questions appropriately - Head Head exam: Present: atraumatic, normal inspection - Eye Eye exam: Present: normal appearance, conjuntiva pink. Absent: nystagmus - ENT ENT exam: Present: mucous membranes moist, normal exam, normal external ear exam - Neck Neck exam general surgery: Present: normal inspection. Absent: lymphadenopathy , tenderness - Respiratory Respiratory exam: Present: CTAB. Absent: chest wall tenderness, decreased breath sounds, rales, respiratory distress, rhonchi, stridor, wheezes, tachypnea - Cardiovascular Cardiovascular exam: Present: RRR, +S1, +S2. Absent: diastolic murmur, systolic murmur - GI/Abdominal GI/Abdominal exam: Present: normal bowel sounds. Absent: mass, pulsatile mass, splenomegaly, tenderness - Extremities Exam Extremities exam: Present: normal capillary refill, normal inspection, tenderness, warm. Absent: joint swelling, pedal edema - Neurological Exam Neurological exam: Present: alert, oriented X3, strengths equal and symetr throughout. Absent: no focal deficits, facial droop, speech deficit - Psychiatric Psychiatric exam: Present: flat affect Additional comments: Pt seems considerably less agitated today. While sitting up, he spilled coffee on the front of his gown and seemed unaware, even after his and I pointed it out to him. Internal Medicine: Result - Labs CBC & Chem 7: 07/22/16 04:32 07/22/16 04:32 Labs: Short CBC 07/22/16 Range/Units 04:32 WBC 6.0 (4.3-11.1) K/mcL Hgb 12.8 L (12.9-16.9) g/dL Hct 37.4 L (37.5-50.1) % Plt Count 168 (140-400) K/mcL Neutrophils # 3.8 (1.6-8.9) K/mcL BMP 07/22/16 04:32 Sodium 140 Potassium 3.4 L Chloride 118 H Carbon Dioxide 13 L BUN 28 H Creatinine 1.29 H Glucose 124 H Calcium 8.4 L - ABG Interpretation ABG results: PT/INR, D-dimer PT 12.4 Seconds (9.4-12.1) H 07/19/16 10:44 - Impressions Impressions Brain MRI 07/21/16 11:53 IMPRESSION: 1. No acute intracranial abnormality. 2. Moderate chronic white matter microvascular ischemic changes. D/ / Ty Nelson MD / Ty Nelson MD Interpreting Provider: Ty Nelson MD Abdomen CT 07/21/16 12:00 IMPRESSION: No acute abnormality. Cholelithiasis unchanged. 4.1 cm abdominal aortic aneurysm, see recommend a below. Pelvis not scanned, this needs clinical reference as to the appropriate order if necessary RECOMMENDATIONS: Managing Abdominal Aortic Aneurysms 2.6-2.9 cm: 5 year follow up. 3.0-3.4 cm: 3 year follow up 3.5-3.9 cm: 1 year follow up. 4.0-4.4 cm: 1 year follow up. Recommend vascular consultation. 4.5-5.4 cm: 6 month follow up. Recommend vascular consultation. Greater than or equal to 5.5 cm: Referral to vascular surgeon. Reference: Onel et al. The care of patients with an abdominal aortic aneurysm: The Society of Vascular Surgery practice guidelines. Journal of Vascular Surgery. Vol 50, Number 85. Liam et al. Managing Incidental Findings on Abdominal and Pelvic CT and MRI, Part 2: White Paper of the ACR Incidental Findings Committee II on Vascular Findings. J Am Bev Radiol 2013;10:789-794 D/ / Onur Allen MD / Onur Allen MD Interpreting Provider: Onur Allen MD Consult Discharge Plan - Plan Referrals: Patrick Khan DO [Primary Care Provider] -
[2016-07-22] MEDS: Multivit/Ca/Min/Fe/FA 1 TAB TABLET PO SCH (09:45)
[2016-07-22] MEDS: Aspirin Enteric Coated 81 MG Tablet PO SCH (09:45)
[2016-07-22] MEDS: 0.9 % Sodium Chloride 1,000 ML IVC SCH (10:08)
[2016-07-22] MEDS: Latanoprost 2.5 ML BOTTLE BOTH EYES SCH (10:09)
[2016-07-22] MEDS ORDERED: 0.9 % Sodium Chloride 500 ML IVC ONE ×3 (13:08→18:00)
[2016-07-23 05:39] LABS: Basophils % 0.3 %; Eosinophils # 0.2 K/mcL (0.0-0.6); Eosinophils % 3.4 %; Hematocrit 34.8 % (37.5-50.1); Hemoglobin 12.3 g/dL (12.9-16.9); Immature Granulocytes % 0.2 % (0-4); Lymphocytes # 1.8 K/mcL (0.6-4.6); Lymphocytes % 30.7 %; Mean Corpuscular HGB Conc 35.3 g/dL (31.6-35.5); Mean Corpuscular Hemoglobin 30.6 pg (28.0-33.3); Mean Corpuscular Volume 86.6 fL (83.0-100.0); Mean Platelet Volume 11.1 fL (9.4-12.4); Monocytes # 0.6 K/mcL (0.0-1.3); Monocytes % 10.7 %; Neutrophils # 3.2 K/mcL (1.6-8.9); Platelet Count 160 K/mcL (140-400); Red Blood Count 4.02 M/mcL (4.19-5.50); Red Cell Distribution Width 14.3 % (11.5-14.5); Segmented Neutrophils % 54.7 %
[2016-07-23] MEDS: *HR* Enoxaparin 40 MG/0.4 ML SYRINGE SQ SCH (05:57)
[2016-07-23 05:59] LABS: BUN/Creatinine Ratio 22 (6-26); Blood Urea Nitrogen 24 mg/dL (8-26); Calcium 8.3 mg/dL (8.6-10.8); Carbon Dioxide 16 mEq/L (19-29); Chloride 118 mEq/L (98-109); Glucose 118 mg/dL (70-99); Osmolality,Calculated 299 (280-300); Potassium 3.4 mEq/L (3.5-4.5); Sodium 142 mEq/L (136-145); eGFR For African Americans > 60 (> 60); eGFR For Non-African Americans > 60 (> 60)
[2016-07-23] MEDS: Latanoprost 2.5 ML BOTTLE BOTH EYES SCH (08:33)
[2016-07-23] MEDS: Multivit/Ca/Min/Fe/FA 1 TAB TABLET PO SCH (08:34)
[2016-07-23] MEDS: Aspirin Enteric Coated 81 MG Tablet PO SCH (08:34)
[2016-07-23 14:05] LABS: Calcium 9.3 mg/dL (8.6-10.8); Potassium 3.6 mEq/L (3.5-4.5)
[2016-07-23 15:15] VITALS: BP 132/82
--- NOTE | 2016-07-23 18:28 | Discharge Summary ---
Date of Encounter: 07/23/16 Time of Encounter: 07:30 - Discharge Diagnosis (1) Altered mental status Priority: Primary Status: Acute Comments: Pt remains about the same as yesterday. He is still having hallucinations, but they are better than on arrival. Pt still appears to be flat affect and does not always engage in conversations around him. He is alert and oriented and answers questions appropriately, but familiy states that he is not himself. Pt does not appear to be as agitated as he did when he first got here, he is still restless. Pt is going to [facility] facility in [facility]. Qualifiers: Altered mental status type: unspecified Qualified Code(s): R41.82 - Altered mental status, unspecified (2) GEOVANNI (acute kidney injury) Priority: Secondary Status: Acute Comments: Labs have returned to baseline. (3) Encephalopathy due to metabolic factor or toxin Priority: Secondary Status: Resolved Comments: Resolved (4) Hypokalemia Priority: Secondary Status: Acute Comments: Resolved today. 3.6 (5) HTN (hypertension) Priority: Secondary Status: Chronic Comments: Pt has been normotensive. Continue home medications. Qualifiers: Hypertension type: essential hypertension Qualified Code(s): I10 - Essential (primary) hypertension (6) Hypocalcemia Priority: Secondary Status: Acute Comments: Resolved today. 9.3 (7) DVT prophylaxis Priority: Secondary Status: Acute Comments: Pt has been up and around department and has CAREY bobe. Will maintain in transfer. - Discharge Medications Home Medications: Aspirin Enteric Coated [Aspirin EC] 81 mg PO DAILY 12/09/15 [History] BuPROPion SR (12 HR) [Wellbutrin SR] 150 mg PO TID 12/09/15 [History] Doxazosin [Cardura] 8 mg PO HS 12/09/15 [History] Gemfibrozil [Lopid] 600 mg PO BID 12/09/15 [History] Multivitamin [One Daily Essential] 1 each PO DAILY 12/09/15 [History] Brimonidine Tartrate/Timolol [Combigan 0.2%-0.5% Eye Drops] 1 drop LEFT EYE TID 07/19/16 [History] Gabapentin [Neurontin] 300 mg PO BID 07/19/16 [History] Travoprost [Travatan Z] 1 drop BOTH EYES DAILY 07/19/16 [History] DiphenhydraMINE [Benadryl] 25 mg IVP Q6HR PRN #0 vial 07/23/16 [Rx] DiphenhydraMINE [Benadryl] 25 mg IVP Q6HR PRN #0 vial 07/23/16 [Rx] Allergies/Adverse Reactions: Allergies No Known Allergies Allergy (Verified 12/09/15 07:18) Procedures/tests Complete & Pending: Procedures Performed prior 72 hours Category Date Time Status CT abdomen wo no iv no oral [CT] Routine Cat Scan 07/21/16 12:00 Completed US retroperitoneal comp [US] Routine Exams 07/22/16 15:00 Completed MR head/brain wo con [MR] Routine MRI 07/21/16 11:53 Completed Date of admission: 07/19/16 13:14 Primary care physician: Patrick Khan Consults: 07/20/16 12:06 Consult to Occupational Therapy [CONS] Routine Comment: Evaluate, develop and implement POC Consult to Physical Therapy [CONS] Routine Comment: Evaluate, develop and implement POC 07/21/16 08:32 Consult to Men'S [employer] Boys[employer] Clothing Salesperson [CONS] Stat Reason for SW Consult: Family states that they feel like they can't take care of pt at home. Would like ECF placement, preferably at [facility] in [place]. 07/21/16 09:41 Consult to Nutrition [CONS] Routine Comment: Decreased appetite and intake. Consulting Provider: NUTRITION Reason for Dietary Consult: Supplemental Nutrition Other:: Please wait until after CT scan is resulted. Discharging clinician: Sarah Del Rio Anticipated date of discharge: 07/23/16 - Patient Status Disposition: Transfer Psychiatric Hosp Condition: Good Functional capacity at discharge: independent ambulation Overall status at discharge: patient is not back to baseline - Discharge Instructions Follow Up With: Patrick Khan DO [Primary Care Provider] - Forms: ED Satisfaction Letter - Diet and Activity Activity: ambulate only with your walker Hospital course: Mr. Llanes is a 81 year old male who presented to the ED 3 days ago for admission for confusion. Initially family thought that it was due to a new medication, so it was stopped without improvement in pt condition. Pt was having visual hallucinations and at one point had a loaded gun at home trying to protect the home from boys who were trying to break into the house. He also believed that there were bugs crawling on him and on his bed. Patient has had intermittent GEOVANNI creatinine is back to baseline today. Patient had a retroperitoneal ultrasound yesterday, kidneys compatible with medical renal disease and no evidence of hydronephrosis and, an enlarged prostate. Patient was accepted today to a geriatric psychiatric unit where he will be evaluated. Patient did have to be pink slipped today in order for them to accept him. - Time Spent with Patient Total time spent providing and/or coordinating discharge services: - Constitutional Vitals: Temp Pulse Resp BP Pulse Ox 97.6 F 96 17 132/82 96 07/23/16 15:14 07/23/16 15:14 07/23/16 15:14 07/23/16 15:14 07/23/16 15:14 General appearance: Present: cooperative, A&O X 3, pleasant, no acute distress, answers questions appropriately - Head Head exam: Present: normal inspection - Eye Eye exam: Present: normal appearance, conjuntiva pink - ENT ENT exam: Present: mucous membranes moist, normal exam - Neck Neck exam general surgery: Present: normal inspection. Absent: lymphadenopathy , tenderness - Respiratory Respiratory exam: Present: CTAB. Absent: rales, respiratory distress, rhonchi, stridor, wheezes, tachypnea - Cardiovascular Cardiovascular exam: Present: RRR. Absent: diastolic murmur, distant heart sounds, systolic murmur - GI/Abdominal GI/Abdominal exam: Present: normal bowel sounds, soft. Absent: tenderness - Extremities Exam Extremities exam: Present: full ROM, normal capillary refill, normal inspection , tenderness, radial pulses palpable and symetrical. Absent: pedal edema - Neurological Exam Neurological exam: Present: alert, normal gait, oriented X3, no focal deficits. Absent: facial droop, speech deficit - Psychiatric Psychiatric exam: Present: flat affect
== END 2016-07-23 19:45 ==
LOC: EMEROO 10:27 → 3BNU 10:27
PROVIDERS: ADMIT Internal Medicine Endocrinology, Diabetes & Metabolism; ATTEND Internal Medicine Endocrinology, Diabetes & Metabolism